=== PATIENT | female | born 1985 | race Caucasian/White ===

== ENCOUNTER → 2016-08-02 | Outpatient (CLI) | payer MEDICAID ==
--- NOTE | 2016-08-02 16:55 | CT ---
High resolution CT of the chest without contrast at 1042 hour History: Rule out underlying interstitial lung disease. Technique: Thin slice axial imaging was obtained at 10 mm intervals through the chest in supine posit ion during inspiration and expiration. Prone imaging was also obtained through the lung bases. Spiral imaging was then obtained through the chest with images reconstructed in multiple planes. Dose reduc tion techniques were utilized. Findings: On the high resolution images the lungs are clear without interstitial disease, infiltrates , or significant pulmonary nodules. There is no evidence of hilar or mediastinal lymphadenopathy. The bronchial busch appear to be normal without thickening. No endobronchial lesion is seen. There is no significant air trapping seen on expiration views. On the routine imaging through the chest, the lungs are clear. There are no pulmonary nodules seen. T here is no pericardial effusion. The heart and great vessels are normal in contour. The soft tissues about the chest demonstrate no significant abnormality. Limited evaluation of upper abdominal structu res to the level of the upper kidneys demonstrates no significant abnormalities. Impression: No significant interstitial lung disease is evident.
== END ==
LOC: FIMAGING 09:48
PROVIDERS: ATTEND Allergy & Immunology Allergy
DX: R06.02 Shortness of breath (principal)